=== PATIENT | male | born 1965 | race Caucasian/White ===

== ENCOUNTER 2016-08-31 10:57 | Emergency (ER) | payer MEDICAID ==
[~2016-08-31] VITALS: Ht 167.6 cm; Wt 78.0 kg
[2016-08-31 11:06] VITALS: BP 135/86
[2016-08-31] MEDS ORDERED: BACITRACIN ZINC OINT UDPKT TOP ONE (13:30)
== END 2016-08-31 14:23 | disposition home or self-care (01) ==
LOC: ER 10:57
DX: S31.829A Unspecified open wound of left buttock, initial encounter (principal); S31.819A Unspecified open wound of right buttock, initial encounter; Y93.89 Activity, other specified; Y99.9 Unspecified external cause status; Y92.89 Other specified places as the place of occurrence of the external cause
CPT/HCPCS: 99282

== ENCOUNTER 2017-08-22 10:49 | Emergency (ER) | payer MEDICAID ==
[~2017-08-22] VITALS: Ht 172.7 cm; Wt 81.0 kg
[2017-08-22] MEDS ORDERED: IBUPROFEN 600MG TABLET PO ONE (14:30)
[2017-08-22 14:39] VITALS: BP 132/93
== END 2017-08-22 15:58 | disposition home or self-care (01) ==
LOC: ER 13:17
DX: M79.644 Pain in right finger(s) (principal)
CPT/HCPCS: 73140; 99284